=== PATIENT | female | born 2000 | race Caucasian/White ===

== ENCOUNTER 2019-12-26 00:37 | Emergency (ER) | payer BC, MEDICAID ==
[2019-12-26] MEDS ORDERED: Oxymetazoline 0.05% Nasal Spray 30 ML Bottle NAS ONE (01:36)
--- NOTE | 2019-12-26 01:45 | EDM.PDOC ---
ED HPI GENERAL MEDICAL PROBLEM - General Chief Complaint: ENT Problem Stated Complaint: NOSE BLEED Time Seen by Provider: 12/26/19 01:28 Source of Information: Reports: Patient, RN History Limitations: Reports: No Limitations - History of Present Illness INITIAL COMMENTS - FREE TEXT/NARRATIVE: patient has 3 separate episodes of bloody noses tonight ranging from 10-20 minutes. Shes had bloody noses in the past during the winter months. Denies any history of anemia. denies feeling light headed or dizzy. is not nauseous. Onset: Today Location: Reports: Other (nose) denies pain Pain Score (Numeric/FACES): 0 - Related Data Allergies Allergy/AdvReac Type Severity Reaction Status Date / Time No Known Allergies Allergy Verified 12/26/19 01:24 Home Meds: Home Meds Dextroamphetamine/Amphetamine [Adderall 20 mg Tablet] 40 mg PO ASDIRECTED [History] Past Medical History - Past Health History Medical/Surgical History: Denies Medical/Surgical History Psychiatric History: Reports: Anxiety, Depression Social & Family History - Tobacco Use Smoking Status *Q: Never Smoker - Caffeine Use Caffeine Use: Reports: Soda - Recreational Drug Use Recreational Drug Use: No ED ROS ENT - Review of Systems Review Of Systems: See Below Constitutional: Reports: No Symptoms HEENT: Reports: Nosebleed Respiratory: Reports: No Symptoms Cardiovascular: Reports: No Symptoms Endocrine: Reports: No Symptoms GI/Abdominal: Reports: No Symptoms Hematologic/Lymphatic: Reports: No Symptoms ED EXAM, ENT - Physical Exam Exam: See Below Exam Limited By: No Limitations General Appearance: Alert, No Apparent Distress Ears: Normal External Exam, Normal Canal, Hearing Grossly Normal, Normal TMs Nose: Other (nasal mucosa is erythematous, edematous, and irritated appearing. small amount of viridiana blood noted in right posterior nose. ) Mouth/Throat: Normal Inspection, Normal Gums, Normal Oropharynx Head: Atraumatic, Normocephalic Neck: Normal Inspection, Supple, Non-Tender Respiratory/Chest: No Respiratory Distress, Lungs Clear, Normal Breath Sounds Cardiovascular: Regular Rate, Rhythm, No Murmur GI/Abdominal: Soft, Non-Tender Skin: Warm, Dry, Intact Lymphatic: No Adenopathy Course - Vital Signs Last Recorded V/S: Last Vital Signs Temp 99.4 F 12/26/19 01:23 Pulse 70 12/26/19 01:23 Resp 16 12/26/19 01:23 BP 136/92 H 12/26/19 01:23 Pulse Ox 97 12/26/19 01:23 - Orders/Labs/Meds Meds: Medications Discontinued Medications Generic Name Dose Route Start Last Admin Trade Name Shakila PRN Reason Stop Dose Admin Oxymetazoline HCl 1 ml 12/26/19 01:36 12/26/19 01:42 Nasal Decongestant Carmel HEDY 12/26/19 01:37 2 spray ONETIME ONE Administration Departure - Departure Time of Disposition: 01:46 Disposition: Home, Self-Care 01 Condition: Good Clinical Impression: Epistaxis not due to trauma - Discharge Information *PRESCRIPTION DRUG MONITORING PROGRAM REVIEWED*: No *COPY OF PRESCRIPTION DRUG MONITORING REPORT IN PATIENT ALFREDITO: No Instructions: Nosebleed, [id number] Referrals: Rahda Kimble MD [Primary Care Provider] - Forms: ED Department Discharge Care Plan Goals: use the Afrin 2 sprays each nostril twice daily for next three days. do not use more than 6 sprays in per nostril in a 24 hour period. Discontinue use after the 3 days as Afrin can cause rebound congestion. You nasal mucosa is red and irritated looking. You could start OTC flonase after you stop the Afrin to help with this. Use Flonase 1 to 2 sprays in each nostril once daily. Use a humidifier at the bedside at night. Do not put anything in your nose and try to avoid irritants such as dust, smoke, or fine particles. call or return to ED with any concerns. Sepsis Event Note - Evaluation Sepsis Screening Result: No Definite Risk - Focused Exam Vital Signs: Vital Signs Temp Pulse Resp BP Pulse Ox 12/26/19 01:23 99.4 F 70 16 136/92 H 97 Date Exam was Performed: 12/26/19 Time Exam was Performed: 06:38 - Assessment/Plan Plan: plan to discharge to home. use afrin x 3 days. may start otc flonase after that if she desires.
== END 2019-12-26 01:52 | disposition home or self-care (01) ==
LOC: JP.ED 00:37
DX: R04.0 Epistaxis (principal)
CPT/HCPCS: 99283; A9270